=== PATIENT | female | born 1990 | race Caucasian/White ===

== ENCOUNTER 2016-07-21 08:01 | Emergency (ER) | payer OTHER ==
[~2016-07-21] VITALS: Ht 175.3 cm; Wt 100.0 kg
[~2016-07-21 08:01] MED LIST: IBUP-232 PO; ZOFR4TAB3 SL
[2016-07-21 08:10] VITALS: BP 121/78; PULSE 89; RESP 16; TEMP 97.6; O2SAT 94
[2016-07-21] MEDS ORDERED: SODIUM CHLOR 0.9% 1000 ML INJ 1,000 ML IV SCH (08:21)
--- NOTE | 2016-07-21 08:25 | PD ---
HPI Chief Complaint: Complaint Time Seen by Provider: 08:13 Travel History International Travel<30 days: No Contact w/Intl Traveler<30days: No Traveled to known affect area: No History of Present Illness HPI This is a 25-year-old female who presents to the emergency department with right lower quadrant abdominal pain and suprapubic pain has been present for 2- 3 days associated with nausea and multiple episodes of vomiting. Patient reports that this morning she woke up at 4 AM and could only curl up on the bathroom floor to get some relief. She says she's had urinary frequency and urgency as well as some hesitancy but she denies any dysuria. She has had some pain in her right lower back. Her symptoms have been constant. She denies any fevers or chills. She says she's had a cholecystectomy in the past but no other abdominal surgeries. She does get urinary tract infections from time to time but she says this feels worse. PFSH Past Medical History Anxiety: Yes Diminished Hearing: No Gastrointestinal Disorders: Yes Genitourinary: Yes (CHRONIC UTI~5 TIMES A YEAR) Kidney Stones: Yes Immunizations Current: Yes ?: Not LMP: IUD : 3 Para: 1 Miscarriage: 1 : 0 Past Surgical History Appendectomy: Yes Section: Yes Cholecystectomy: Yes Ear Surgery: Yes (TUBES PLACED) Gynecologic Surgery: Yes (IUD PLACEMENT 09/26/10) Tympanostomy Tube: Yes Other Surgery: Yes Social History Alcohol Use: Yes (OCC) Tobacco Use: No Substance Use: No Allergies-Medications (Allergen,Severity, Reaction): Coded Allergies: Codeine (Verified Allergy, Severe, NAUSEA, 07/21/16) Morphine (Verified Allergy, Severe, HIVE, 07/21/16) Reported Meds & Prescriptions Reported Meds & Active Scripts Active No Active Prescriptions or Reported Medications Review of Systems Except as stated in HPI: all other systems reviewed are Neg Physical Exam Narrative GENERAL:Well appearing, no acute distress SKIN: Warm and dry. HEAD: Atraumatic. Normocephalic. EYES: Pupils equal and round. No injection or drainage. ENT: Moist mucous membranes NECK: Trachea midline. CARDIOVASCULAR: Regular rate and rhythm. No murmur appreciated. RESPIRATORY: Clear to auscultation. Breath sounds equal bilaterally. GASTROINTESTINAL: Abdomen soft, tender to palpation in the right lower quadrant and suprapubic region with no rebound or guarding. MUSCULOSKELETAL: No obvious deformities. NEUROLOGICAL: Awake and alert. No obvious cranial nerve deficits. Moving all extremities. PSYCHIATRIC: Appropriate mood and affect; insight and judgment normal. Data Data Last Documented VS Vital Signs Date Time Temp Pulse Resp B/P Pulse Ox O2 Delivery O2 Flow Rate FiO2 07/21/16 08:40 83 16 115/48 96 07/21/16 08:10 97.6 Orders Complete Blood Count With Diff (07/21/16 08:21) Comprehensive Metabolic Panel (07/21/16 08:21) Urinalysis - C+S If Indicated (07/21/16 08:21) Iv Access Insert/Monitor (07/21/16 08:21) Ecg Monitoring (07/21/16 08:21) Oximetry (07/21/16 08:21) Ondansetron Inj (Zofran Inj) (07/21/16 08:30) Sodium Chlor 0.9% 1000 Ml Inj (Ns 1000 M (07/21/16 08:21) Sodium Chloride 0.9% Flush (Ns Flush) (07/21/16 08:30) Hydromorphone Pf Inj (Dilaudid Pf Inj) (07/21/16 08:30) Ed Urine Pregnancytest Poc (07/21/16 08:25) Urine Culture (07/21/16 08:20) Ceftriaxone Inj (Rocephin Inj) (07/21/16 09:00) Labs Laboratory Tests Test 07/21/16 07/21/16 07/21/16 08:20 08:25 09:14 Urine Collection Type CLEAN CATCH Urine Color YELLOW Urine Turbidity MARKED Urine pH 8.5 Urine Specific Angle Inlet 1.020 Urine Protein 100 mg/dL Urine Glucose (UA) NEG mg/dL Urine Ketones 15 mg/dL Urine Occult Blood SMALL Urine Nitrite POS Urine Bilirubin NEG Urine Leukocyte Esterase LARGE Urine RBC 20-24 /hpf Urine WBC INNUM /hpf Urine WBC Clumps MANY Urine Squamous Epithelial > 8 /hpf Cells Urine Bacteria MANY /hpf Microscopic Urinalysis Comment CULTURE INDICATED Urine Collection Time 08:20 White Blood Count 5.9 TH/MM3 Red Blood Count 4.74 MIL/MM3 Hemoglobin 15.0 GM/DL Hematocrit 45.7 % Mean Corpuscular Volume 96.3 FL Mean Corpuscular Hemoglobin 31.6 PG Mean Corpuscular Hemoglobin 32.8 % Concent Red Cell Distribution Width 14.0 % Platelet Count 408 TH/MM3 Mean Platelet Volume 8.4 FL Neutrophils (%) (Auto) 68.3 % Lymphocytes (%) (Auto) 20.3 % Monocytes (%) (Auto) 7.3 % Eosinophils (%) (Auto) 2.5 % Basophils (%) (Auto) 1.6 % Neutrophils # (Auto) 4.1 TH/MM3 Lymphocytes # (Auto) 1.2 TH/MM3 Monocytes # (Auto) 0.4 TH/MM3 Eosinophils # (Auto) 0.1 TH/MM3 Basophils # (Auto) 0.1 TH/MM3 CBC Comment DIFF FINAL Differential Comment Sodium Level 142 MEQ/L Potassium Level 3.8 MEQ/L Chloride Level 106 MEQ/L Carbon Dioxide Level 27.8 MEQ/L Anion Gap 8 MEQ/L Blood Urea Nitrogen 12 MG/DL Creatinine 0.82 MG/DL Estimat Glomerular Filtration 84 ML/MIN Rate Random Glucose 100 MG/DL Calcium Level 8.2 MG/DL Aspartate Amino Transf 29 U/L (AST/SGOT) Alanine Aminotransferase 39 U/L (ALT/SGPT) Alkaline Phosphatase 65 U/L Total Protein 6.8 GM/DL Albumin 3.5 GM/DL MDM Medical Decision Making Medical Screen Exam Complete: Yes Emergency Medical Condition: Yes Interpretation(s) afebrile, no tachycardia, normotensive No leukocytosis Electrolytes within normal limits Urinalysis: Infection Differential Diagnosis Urinary tract infection, pyelonephritis, appendicitis, ovarian cyst rupture, ectopic Narrative Course This is a 25-year-old female who presents to the emergency department with lower abdominal pain associated with frequency, urgency and hesitancy. She was placed in a monitor and an IV was established. Labs are obtained which were reassuring. Urinalysis is consistent with an infection. I considered appendicitis. The patient has had [address] scans in our system and she is only 25 years old. I think her symptoms are consistent with pyelonephritis and I think the risk of radiation outweighs the benefits in this patient. Patient will be discharged on antibiotics and she was given a dose of IV antibiotics here in the emergency department. Diagnosis Primary Impression: Pyelonephritis Patient Instructions: General Instructions Additional Instructions: If you develop fever, persistent vomiting, back pain, or inability to eat return to the emergency department as your urine infection may have progressed to a kidney infection. Complete your antibiotics as prescribed. Stay well hydrated with Gatorade or water. Followup with your primary care physician in 2-3 days if your symptoms have not resolved. Med/Other Pt SpecificInfo: Prescription(s) given Scripts Tramadol 50 Mg Tab50 Mg PO Q6H PRN (PAIN) #10 TAB Ref 0 Prov:Eugenie Cortez MD 07/21/16 Ondansetron Odt (Zofran Odt)4 Mg Tab4 Mg SL Q6HR PRN (Nausea/Vomiting) #15 TAB Ref 0 Prov:Eugenie Cortez MD 07/21/16 Cephalexin (Keflex)500 Mg [id number] Mg PO BID 7 Days Ref 0 Prov:Eugenie Cortez MD 07/21/16 Disposition: 01 DISCHARGE HOME Condition: Stable Eugenie Cortez MD Jul 21, 2016 08:25
[2016-07-21] MEDS ORDERED: SODIUM CHLORIDE 0.9% FLUSH 5 ML FLUSH IVF PRN (08:30)
[2016-07-21] MEDS ORDERED: HYDROmorphone HCL PF 1 MG/ML VIAL IVS ONE (08:30)
[2016-07-21] MEDS ORDERED: ONDANSETRON HCL 4 MG/2 ML VIAL IVP ONE (08:30)
[2016-07-21 08:38] LABS: BLOOD, URINE SMALL (NEG); GLUCOSE,URINE NEG (NEG); KETONE, URINE 15 mg/dL (NEG); PH, URINE 8.5 (5.0-8.5)
[2016-07-21 08:40] VITALS: BP 115/48; PULSE 80; PULSE 83; RESP 16; O2SAT 96
[2016-07-21 08:40] LABS: NITRITE,URINE POS (NEG)
[2016-07-21 08:43] LABS: AUTOMATED NEUTROPHIL # 4.1 TH/MM3 (1.8-7.7); BASOPHIL # 0.1 TH/MM3 (0-0.2); BASOPHIL % 1.6 % (0.0-2.0); EOSINOPHIL # 0.1 TH/MM3 (0-0.4); EOSINOPHIL % 2.5 % (0.0-4.0); HEMATOCRIT 45.7 % (35.0-46.0); HEMO FLAGS DIFF FINAL; LYMPH % 20.3 % (9.0-44.0); LYMPHOCYTE # 1.2 TH/MM3 (1.0-4.8); MEAN CELL VOLUME 96.3 FL (80.0-100.0); MEAN CORPUSCULAR HEMOGLOBIN 31.6 PG (27.0-34.0); MEAN CORPUSCULAR HGB CONC 32.8 % (32.0-36.0); MONO % 7.3 % (0.0-8.0); NEUT % 68.3 % (16.0-70.0); PLATELET COUNT 408 TH/MM3 (150-450); RED BLOOD COUNT 4.74 MIL/MM3 (4.00-5.30); WHITE BLOOD COUNT 5.9 TH/MM3 (4.0-11.0)
[2016-07-21 08:48] LABS: METHOD OF COLLECTION CLEAN CATCH; URINE COLOR YELLOW (YELLW/STRAW); WBC, URINE INNUM /hpf (0-5)
[2016-07-21 08:49] LABS: BACTERIA, URINE MANY /hpf; COMMENT (UR) CULTURE INDICATED; CULTURE IF INDICATED CULTURE INDICATED; SQUAMOUS EPITHELIAL CELL URINE > 8 /hpf (0-5)
[2016-07-21] MEDS ORDERED: cefTRIAXone INJ 1,000 MG in SODIUM CHLORIDE 0.9% INJ 100 ML IV ONE (09:00)
[2016-07-21 10:00] LABS: CHLORIDE 106 MEQ/L (98-107); POTASSIUM 3.8 MEQ/L (3.5-5.1); SODIUM (NA) 142 MEQ/L (136-145)
[2016-07-21 10:07] LABS: ANION GAP 8 MEQ/L (5-15); BICARBONATE 27.8 MEQ/L (21.0-32.0); BLOOD UREA NITROGEN 12 MG/DL (7-18)
[2016-07-21 10:10] LABS: ALT (GPT) 39 U/L (10-53); AST (GOT) 29 U/L (15-37); GLOMERULAR FILTRATION RATE 84 ML/MIN (>89)
[2016-07-21 10:13] LABS: ALKALINE PHOSPHATASE 65 U/L (45-117)
[2016-07-21] MEDS ORDERED: TRAM50TA PO (10:22)
[2016-07-21] MEDS ORDERED: CEPH-460 PO (10:22)
[2016-07-21] MEDS ORDERED: ZOFR4TAB3 SL (10:22)
[2016-07-21 10:29] VITALS: BP 102/65; TEMP 98.3
[2016-07-22] MEDS ORDERED: MOTR200T4 PO (18:14)
[2016-07-22] MEDS ORDERED: PROM1SUP7 RECTAL (18:14)
== END 2016-07-21 10:43 | disposition home or self-care (01) ==
LOC: PHED 08:01
DX: N12 Tubulo-interstitial nephritis, not specified as acute or chronic (principal); B96.20 Unspecified Escherichia coli [E. coli] as the cause of diseases classified elsewhere; Z87.442 Personal history of urinary calculi
CPT/HCPCS: 80053; 81001; 84703; 85025; 87077; 87086; 87186; 96361; 96365; 96375; 99284; J0696; J1170; J2405; J7030

== ENCOUNTER 2016-07-22 16:07 | Emergency (ER) | payer OTHER ==
[~2016-07-22] VITALS: Ht 175.3 cm; Wt 102.0 kg
[~2016-07-22 16:07] MED LIST changes: +CEPH-460 PO; +TRAM50TA PO
[2016-07-22 16:14] VITALS: BP 130/89; PULSE 112; RESP 16; TEMP 98.8; O2SAT 96
[2016-07-22] MEDS ORDERED: SODIUM CHLOR 0.9% 1000 ML INJ 1,000 ML IV SCH (16:22)
[2016-07-22] MEDS ORDERED: SODIUM CHLORIDE 0.9% FLUSH 5 ML FLUSH IVF PRN (16:30)
[2016-07-22] MEDS ORDERED: ONDANSETRON HCL 4 MG/2 ML VIAL IVP ONE (16:30)
[2016-07-22] MEDS ORDERED: HYDROmorphone HCL PF 1 MG/ML VIAL IV PUSH ONE (16:30)
--- NOTE | 2016-07-22 16:30 | PD ---
HPI Chief Complaint: Complaint Time Seen by Provider: 16:22 Travel History International Travel<30 days: No Contact w/Intl Traveler<30days: No Traveled to known affect area: No History of Present Illness HPI 25-year-old female with history of pyelonephritis diagnosed yesterday, released with anti-medics and antibiotics, presents back to the ER today because she states she's been nauseous, vomiting, continuing to have right flank pains, was unable to keep anything down today. She denies any other new issues. Modifying Factors: None Associated Signs & Symptoms: Nausea, vomiting, right flank pain Risk Factors: Pyelonephritis PFSH Past Medical History Anxiety: Yes Diminished Hearing: No Gastrointestinal Disorders: Yes Genitourinary: Yes (CHRONIC UTI~5 TIMES A YEAR) Kidney Stones: Yes Immunizations Current: Yes Tetanus Vaccination: Unknown Influenza Vaccination: No ?: Not LMP: 6 DAYS : 3 Para: 1 Miscarriage: 1 : 0 Past Surgical History Appendectomy: Yes Section: Yes Cholecystectomy: Yes Ear Surgery: Yes (TUBES PLACED) Gynecologic Surgery: Yes (IUD PLACEMENT 09/26/10) Tympanostomy Tube: Yes Other Surgery: Yes Social History Alcohol Use: Yes (OCC) Tobacco Use: Yes (OCC) Substance Use: No Allergies-Medications (Allergen,Severity, Reaction): Coded Allergies: Codeine (Verified Allergy, Severe, NAUSEA, 07/22/16) Morphine (Verified Allergy, Severe, HIVE, 07/22/16) Reported Meds & Prescriptions Reported Meds & Active Scripts Active Tramadol (Tramadol HCl) 50 Mg Tab 50 Mg PO Q6H PRN Zofran Odt (Ondansetron Odt) 4 Mg Tab 4 Mg SL Q6HR PRN Keflex (Cephalexin) 500 Mg Cap 500 Mg PO BID 7 Days Review of Systems Except as stated in HPI: all other systems reviewed are Neg Physical Exam Narrative GENERAL: Well-nourished, well-developed young white female patient in moderate distress, tearful. SKIN: Warm and dry. HEAD: Normocephalic. EYES: No scleral icterus. No injection or drainage. NECK: Supple, trachea midline. CARDIOVASCULAR: Regular rate and rhythm without murmurs, gallops, or rubs. RESPIRATORY: Breath sounds equal bilaterally. No accessory muscle use. GASTROINTESTINAL: Abdomen soft, mild right pelvic, nondistended. MUSCULOSKELETAL: No cyanosis, or edema. BACK: Nontender without obvious deformity. Right CVA tenderness. Data Data Last Documented VS Vital Signs Date Time Temp Pulse Resp B/P Pulse Ox O2 Delivery O2 Flow Rate FiO2 07/22/16 16:14 98.8 112 16 130/89 96 Orders Basic Metabolic Panel (Bmp) (07/22/16 16:22) Complete Blood Count With Diff (07/22/16 16:22) Iv Access Insert/Monitor (07/22/16 16:22) Ecg Monitoring (07/22/16 16:22) Oximetry (07/22/16 16:22) Ondansetron Inj (Zofran Inj) (07/22/16 16:30) Sodium Chlor 0.9% 1000 Ml Inj (Ns 1000 M (07/22/16 16:22) Sodium Chloride 0.9% Flush (Ns Flush) (07/22/16 16:30) Hydromorphone Pf Inj (Dilaudid Pf Inj) (07/22/16 16:30) Labs Laboratory Tests Test 07/22/16 16:35 White Blood Count 6.5 TH/MM3 Red Blood Count 4.73 MIL/MM3 Hemoglobin 14.8 GM/DL Hematocrit 45.9 % Mean Corpuscular Volume 97.0 FL Mean Corpuscular Hemoglobin 31.2 PG Mean Corpuscular Hemoglobin 32.2 % Concent Red Cell Distribution Width 13.9 % Platelet Count 363 TH/MM3 Mean Platelet Volume 8.3 FL Neutrophils (%) (Auto) 58.7 % Lymphocytes (%) (Auto) 26.6 % Monocytes (%) (Auto) 8.7 % Eosinophils (%) (Auto) 5.0 % Basophils (%) (Auto) 1.0 % Neutrophils # (Auto) 3.8 TH/MM3 Lymphocytes # (Auto) 1.7 TH/MM3 Monocytes # (Auto) 0.6 TH/MM3 Eosinophils # (Auto) 0.3 TH/MM3 Basophils # (Auto) 0.1 TH/MM3 CBC Comment DIFF FINAL Differential Comment Sodium Level 142 MEQ/L Potassium Level 3.9 MEQ/L Chloride Level 106 MEQ/L Carbon Dioxide Level 28.5 MEQ/L Anion Gap 8 MEQ/L Blood Urea Nitrogen 9 MG/DL Creatinine 1.10 MG/DL Estimat Glomerular Filtration 60 ML/MIN Rate Random Glucose 96 MG/DL Calcium Level 8.9 MG/DL MDM Medical Decision Making Medical Screen Exam Complete: Yes Emergency Medical Condition: Yes Medical Record Reviewed: Yes Interpretation(s) Laboratory Tests Test 07/22/16 16:35 Monocytes (%) (Auto) 8.7 % (0.0-8.0) Eosinophils (%) (Auto) 5.0 % (0.0-4.0) Creatinine 1.10 MG/DL (0.50-1.00) Estimat Glomerular Filtration 60 ML/MIN (>89) Rate Differential Diagnosis Right flank pains, nausea and vomitingpyelonephritisrule out dehydration versus metabolic issues versus worsening sepsis Narrative Course Patient was given IV fluids, Zofran, and Dilaudid in the ER. Symptoms and lab work done yesterday are indicative of UTI and pyelonephritis. However, it appears that the patient is not tolerating by mouth medications due to vomiting. Lab work returns showing no significant dehydration or signs of sepsis. Vital signs are stable in the ER. On reevaluation at 6:12 PM, she is feeling improved, has had no further vomiting episodes in the ER. At this point , I have talked to the patient regarding findings and have discussed observation admission versus change in nausea medication and further outpatient therapy. Patient states that she feels better enough that she is willing to try additional anti-medic as an outpatient and further treatment with by mouth pain medication and antibiotic. She should return for any worsening in vomiting , pain, or new symptoms. The plan was discussed with the patient and she states understanding. Diagnosis Primary Impression: Nausea and vomiting Med/Other Pt SpecificInfo: Prescription(s) given Scripts Ibuprofen (Motrin Ib)200 Mg [id number] Mg PO Q6H PRN (PAIN SCALE 1 TO 10) #15 TAB Ref 0 Prov:Alma Andres MD 07/22/16 Promethazine Supp (Phenergan Supp)25 Mg Supp25 Mg RECTAL Q6H PRN (NAUSEA OR VOMITING) #7 SUPP Ref 0 Prov:Alma Andres MD 07/22/16 Disposition: 01 DISCHARGE HOME Condition: Stable Alma Andres MD Jul 22, 2016 16:30
[2016-07-22 16:55] LABS: AUTOMATED NEUTROPHIL # 3.8 TH/MM3 (1.8-7.7); BASOPHIL # 0.1 TH/MM3 (0-0.2); EOSINOPHIL # 0.3 TH/MM3 (0-0.4); HEMATOCRIT 45.9 % (35.0-46.0); HEMO FLAGS DIFF FINAL; LYMPH % 26.6 % (9.0-44.0); LYMPHOCYTE # 1.7 TH/MM3 (1.0-4.8); MEAN CORPUSCULAR HEMOGLOBIN 31.2 PG (27.0-34.0); MEAN CORPUSCULAR HGB CONC 32.2 % (32.0-36.0); MONO % 8.7 % (0.0-8.0); NEUT % 58.7 % (16.0-70.0); PLATELET COUNT 363 TH/MM3 (150-450); RED BLOOD COUNT 4.73 MIL/MM3 (4.00-5.30); RED CELL DISTRIBUTION WIDTH 13.9 % (11.6-17.2); WHITE BLOOD COUNT 6.5 TH/MM3 (4.0-11.0)
[2016-07-22 17:20] VITALS: BP 141/56; PULSE 66; RESP 20
[2016-07-22 18:00] LABS: BICARBONATE 28.5 MEQ/L (21.0-32.0)
[2016-07-22 18:03] LABS: POTASSIUM 3.9 MEQ/L (3.5-5.1)
[2016-07-22] MEDS ORDERED: MOTR200T4 PO (18:14)
[2016-07-22] MEDS ORDERED: PROM1SUP7 RECTAL (18:14)
[2016-07-22 18:16] VITALS: BP 130/62; PULSE 62; RESP 18; O2SAT 97
== END 2016-07-22 18:51 | disposition home or self-care (01) ==
LOC: PHED 16:07
DX: R11.2 Nausea with vomiting, unspecified (principal); R10.9 Unspecified abdominal pain
CPT/HCPCS: 80048; 85025; 96361; 96374; 96375; 99284; J1170; J2405; J7030

== ENCOUNTER 2017-02-03 13:05 | Emergency (ER) | payer OTHER ==
[~2017-02-03 13:05] MED LIST changes: -IBUP-232 PO; +MOTR200T4 PO; +PROM1SUP7 RECTAL
[2017-02-03 13:10] VITALS: BP 127/53; PULSE 82; RESP 20; TEMP 98.6; O2SAT 97
[2017-02-03] MEDS ORDERED: SODIUM CHLOR 0.9% 1000 ML INJ 1,000 ML IV SCH (13:26)
[2017-02-03] MEDS ORDERED: SODIUM CHLORIDE 0.9% FLUSH 10 ML FLUSH IV FLUSH PRN (13:30)
[2017-02-03] MEDS ORDERED: ONDANSETRON HCL 4 MG/2 ML VIAL IVP ONE (13:30)
[2017-02-03] MEDS ORDERED: HYDROmorphone HCL PF 1 MG/ML VIAL IVS ONE (13:30)
[2017-02-03 13:47] LABS: GLUCOSE,URINE NEG (NEG); KETONE, URINE 15 mg/dL (NEG); NITRITE,URINE NEG (NEG)
[2017-02-03 13:50] LABS: BLOOD, URINE MOD (NEG)
[2017-02-03 13:58] LABS: METHOD OF COLLECTION CLEAN CATCH
[2017-02-03 13:59] LABS: URINE COLOR YELLOW (YELLW/STRAW)
[2017-02-03 14:04] LABS: COMMENT (UR) CULT NOT INDICATED; COMMENT2 (UR) MUCOUS PRESENT; CULTURE IF INDICATED CULT NOT INDICATED; SQUAMOUS EPITHELIAL CELL URINE > 8 /hpf (0-5)
--- NOTE | 2017-02-03 14:24 | RADRPT ---
EXAM DATE/TIME: 02/03/2017 14:00 [facility] COMPARISON: CT ABDOMEN & PELVIS W/O CONTRAST, April 24, 2016, 10:10. INDICATIONS : Right lower quadrant pain. ORAL CONTRAST: No oral contrast ingested. RADIATION DOSE: 16.01 CTDIvol (mGy) MEDICAL HISTORY : None SURGICAL HISTORY : Appendectomy. Cholecystectomy. section.IUD ENCOUNTER: Initial ACUITY: 2 days PAIN SCALE: 7/10 LOCATION: Right lower quadrant TECHNIQUE: Volumetric scanning of the abdomen and pelvis was performed. Using automated exposure control and ad justment of the mA and/or kV according to patient size, radiation dose was kept as low as reasonably achievable to obtain optimal diagnostic quality images. DICOM format image data is available electro nically for review and comparison. The lack of IV contrast limits the diagnosis for certain organ pa thology. FINDINGS: LOWER LUNGS: The visualized lower lungs are clear. LIVER: Homogeneous density without lesion. There is no dilation of the biliary tree. No gallbladder, surgi nereyda removed.. SPLEEN: Normal size without lesion. PANCREAS: Within normal limits. KIDNEYS: Normal in size and shape. There is no mass, stone, or hydronephrosis. ADRENAL GLANDS: Within normal limits. VASCULAR: There is no aortic aneurysm. BOWEL/MESENTERY: The stomach, small bowel, and colon demonstrate no acute abnormality. There is no free intraperitone al air or fluid. No inflammatory changes. There is stool throughout the colon.ABDOMINAL WALL: Within normal limits. RETROPERITONEUM: There is no lymphadenopathy. BLADDER: No wall thickening or mass. REPRODUCTIVE: There is an IUD in the uterus. No change compared to the prior study. INGUINAL: There is no lymphadenopathy or hernia. MUSCULOSKELETAL: Within normal limits for patient age. No significant change compared to the prior exam. CONCLUSION: 1. Stable and unremarkable noncontrast CT scan of the abdomen and pelvis. 2. IUD in uterus. No change compared to the prior study. Wilder Dasilva MD on February 03, 2017 at 14:19 Board Certified Radiologist. This report was verified electronically.
[2017-02-03 15:05] VITALS: BP 118/48; PULSE 60; RESP 18; O2SAT 100
[2017-02-03 15:06] VITALS: RESP 18; O2SAT 100
[2017-02-03 15:12] LABS: CHLORIDE 107 MEQ/L (98-107); POTASSIUM 3.9 MEQ/L (3.5-5.1); SODIUM (NA) 139 MEQ/L (136-145)
[2017-02-03 15:15] LABS: ANION GAP 8 MEQ/L (5-15); BICARBONATE 24.4 MEQ/L (21.0-32.0)
[2017-02-03 15:16] LABS: BLOOD UREA NITROGEN 11 MG/DL (7-18)
[2017-02-03 15:18] LABS: ALT (GPT) 42 U/L (10-53); AST (GOT) 28 U/L (15-37); GLOMERULAR FILTRATION RATE 98 ML/MIN (>89)
[2017-02-03 15:21] LABS: ALKALINE PHOSPHATASE 56 U/L (45-117)
[2017-02-03 15:25] LABS: AUTOMATED NEUTROPHIL # 3.1 TH/MM3 (1.8-7.7); BASOPHIL # 0.1 TH/MM3 (0-0.2); BASOPHIL % 1.6 % (0.0-2.0); EOSINOPHIL # 0.1 TH/MM3 (0-0.4); EOSINOPHIL % 2.1 % (0.0-4.0); HEMATOCRIT 39.9 % (35.0-46.0); HEMO FLAGS DIFF FINAL; LYMPH % 33.1 % (9.0-44.0); LYMPHOCYTE # 1.8 TH/MM3 (1.0-4.8); MEAN CORPUSCULAR HEMOGLOBIN 30.4 PG (27.0-34.0); MEAN CORPUSCULAR HGB CONC 32.6 % (32.0-36.0); MONO % 6.8 % (0.0-8.0); NEUT % 56.4 % (16.0-70.0); PLATELET COUNT 247 TH/MM3 (150-450); RED BLOOD COUNT 4.29 MIL/MM3 (4.00-5.30); RED CELL DISTRIBUTION WIDTH 13.4 % (11.6-17.2); WHITE BLOOD COUNT 5.5 TH/MM3 (4.0-11.0)
[2017-02-03] MEDS ORDERED: ULTR50TA5 PO (15:27)
[2017-02-03] MEDS ORDERED: ZOFR4TAB3 SL (15:27)
--- NOTE | 2017-02-03 15:27 | PD ---
HPI Chief Complaint: Abdominal Pain Time Seen by Provider: 13:20 Travel History International Travel<30 days: No Contact w/Intl Traveler<30days: No Traveled to known affect area: No History of Present Illness HPI C/O 2 DAYS OF RLQ TTP, NONRADIATING, NO ASSOC N/V/D/FEVER/CP/ORTIZ...NO ALLEVIATING /AGGRAVATING FACTORS PFSH Past Medical History Anxiety: Yes Diminished Hearing: No Gastrointestinal Disorders: Yes Genitourinary: Yes (CHRONIC UTI~5 TIMES A YEAR) Kidney Stones: Yes Immunizations Current: Yes Influenza Vaccination: No ?: Not : 3 Para: 1 Miscarriage: 1 : 0 Past Surgical History Appendectomy: Yes Section: Yes Cholecystectomy: Yes Ear Surgery: Yes (TUBES PLACED) Gynecologic Surgery: Yes (IUD PLACEMENT 09/26/10) Tympanostomy Tube: Yes Other Surgery: Yes Social History Alcohol Use: Yes (OCC) Tobacco Use: Yes (1/2 PPD) Substance Use: No Allergies-Medications (Allergen,Severity, Reaction): Coded Allergies: Codeine (Verified Allergy, Severe, NAUSEA, 02/03/17) Morphine (Verified Allergy, Severe, HIVE, 02/03/17) Reported Meds & Prescriptions Reported Meds & Active Scripts Active Zofran Odt (Ondansetron Odt) 4 Mg Tab 4 Mg SL Q6HR PRN Ultram (Tramadol HCl) 50 Mg Tab 50 Mg PO Q4H PRN Review of Systems Except as stated in HPI: all other systems reviewed are Neg Gastrointestinal: Positive: Nausea, Abdominal Pain Physical Exam Narrative GENERAL: SKIN: Warm and dry. HEAD: Atraumatic. Normocephalic. EYES: Pupils equal and round. No scleral icterus. No injection or drainage. ENT: No nasal bleeding or discharge. Mucous membranes pink and moist. NECK: Trachea midline. No JVD. CARDIOVASCULAR: Regular rate and rhythm. RESPIRATORY: No accessory muscle use. Clear to auscultation. Breath sounds equal bilaterally. GASTROINTESTINAL: Abdomen soft, MILD TTP AT RT ADNEXAL TO RLQ REGION, nondistended. NO REBOUND/GUARDING/RIGIDITY MUSCULOSKELETAL: Extremities without clubbing, cyanosis, or edema. No obvious deformities. NEUROLOGICAL: Awake and alert. No obvious cranial nerve deficits. Motor grossly within normal limits. Five out of 5 muscle strength in the arms and legs. Normal speech. PSYCHIATRIC: Appropriate mood and affect; insight and judgment normal. Data Data Last Documented VS Orders Complete Blood Count With Diff (02/03/17 13:26) Comprehensive Metabolic Panel (02/03/17:) Lipase (02/03/17:) Urinalysis - C+S If Indicated (02/03/17:) Ct Abd/Pel W/O Iv Contrast (02/03/17:26) Iv Access Insert/Monitor (02/03/17:) Ecg Monitoring (02/03/17:) Oximetry (02/03/17:) NPO (02/03/17:) Ondansetron Inj (Zofran Inj) (02/03/17 13:30) Sodium Chlor 0.9% 1000 Ml Inj (Ns 1000 M (02/03/17:) Sodium Chloride 0.9% Flush (Ns Flush) (02/03/17 13:30) Hydromorphone Pf Inj (Dilaudid Pf Inj) (02/03/17 13:30) Ed Urine Pregnancytest Poc (02/03/17:) Labs MDM Medical Decision Making Medical Screen Exam Complete: Yes Emergency Medical Condition: Yes Medical Record Reviewed: Yes Differential Diagnosis APPY V OVARIAN CYST V UTI Narrative Course patient labs did not reveal leukocytosis, ct did not show any e/o appy, pain controlled and advised patient of findings. Diagnosis Primary Impression: ACUTE OVARIAN CYST (RIGHT) Scripts Ondansetron Odt (Zofran Odt)4 Mg Tab4 Mg SL Q6HR PRN (Nausea/Vomiting) #12 TAB Prov:Matthew Krueger MD 02/03/17 Tramadol (Ultram)50 Mg Tab50 Mg PO Q4H PRN (PAIN) #28 TAB Prov:Matthew Krueger MD 02/03/17 Disposition: 01 DISCHARGE HOME Condition: Stable Matthew Krueger MD Feb 03, 2017 15:27 Urine Protein NEG mg/dL Urine Glucose (UA) NEG mg/dL Urine Ketones 15 mg/dL Urine Occult Blood MOD Urine Nitrite NEG Urine Bilirubin NEG Urine Leukocyte Esterase TRACE Urine RBC 4-9 /hpf Urine WBC 3-5 /hpf Urine Squamous Epithelial > 8 /hpf Cells Urine Amorphous Sediment MOD Microscopic Urinalysis Comment CULT NOT INDICATED Urine Collection Time 1314 Sodium Level 139 MEQ/L Potassium Level 3.9 MEQ/L Chloride Level 107 MEQ/L Carbon Dioxide Level 24.4 MEQ/L Anion Gap 8 MEQ/L Blood Urea Nitrogen 11 MG/DL Creatinine 0.71 MG/DL Estimat Glomerular Filtration 98 ML/MIN Rate Random Glucose 87 MG/DL Calcium Level 8.5 MG/DL Total Bilirubin 1.0 MG/DL Aspartate Amino Transf 28 U/L (AST/SGOT) Alanine Aminotransferase 42 U/L (ALT/SGPT) Alkaline Phosphatase 56 U/L Total Protein 6.7 GM/DL Albumin 3.4 GM/DL Lipase 102 U/L [facility] Medical Decision Making Medical Screen Exam Complete: Yes Emergency Medical Condition: Yes Medical Record Reviewed: Yes Differential Diagnosis APPY V OVARIAN CYST V UTI Diagnosis Primary Impression: ACUTE OVARIAN CYST (RIGHT) Scripts Ondansetron Odt (Zofran Odt)4 Mg Tab4 Mg SL Q6HR PRN (Nausea/Vomiting) #12 TAB Prov:Matthew Krueger MD 02/03/17 Tramadol (Ultram)50 Mg Tab50 Mg PO Q4H PRN (PAIN) #28 TAB Prov:Matthew Krueger MD 02/03/17 Disposition: 01 DISCHARGE HOME Condition: Stable Matthew Krueger MD Feb 03, 2017 15:27
[2017-02-03 16:26] VITALS: BP 120/55; PULSE 62; RESP 16; O2SAT 100
== END 2017-02-03 16:33 | disposition home or self-care (01) ==
LOC: PHED 13:05
DX: N83.201 Unspecified ovarian cyst, right side (principal); F17.210 Nicotine dependence, cigarettes, uncomplicated; Z87.442 Personal history of urinary calculi
CPT/HCPCS: 74176; 80053; 81001; 83690; 84703; 85025; 96361; 96374; 96375; 99285; J1170; J2405; J7030

== ENCOUNTER 2017-06-11 16:31 | Emergency (ER) | payer SELFPAY ==
[~2017-06-11] VITALS: Ht 177.8 cm; Wt 90.2 kg
[~2017-06-11 16:31] MED LIST changes: -CEPH-460 PO; -MOTR200T4 PO; -PROM1SUP7 RECTAL; +TRAM50 PO; -TRAM50TA PO
[2017-06-11 16:32] VITALS: BP 148/65; PULSE 92; RESP 18; TEMP 98.2; O2SAT 99
[2017-06-11] MEDS ORDERED: predniSONE 20 MG TAB PO ONE (17:00)
[2017-06-11] MEDS ORDERED: FAMOTIDINE 20 MG TAB PO ONE (17:00)
--- NOTE | 2017-06-11 17:23 | PD ---
HPI Chief Complaint: Bite or Sting Time Seen by Provider: 16:43 Travel History International Travel<30 days: No Contact w/Intl Traveler<30days: No Traveled to known affect area: No History of Present Illness HPI Patient comes in with concerns of possible bug bites on her right hand that occurred 2 days ago. Patient states they are very pruritic in nature. Patient states they have improved since initial onset. Patient states she's been using hydrocortisone cream and Benadryl that seemed to help. Patient states that secondary to people at her work she looked online got concerned and came to the emergency department. Denies any fevers, , or IV drug use. Denies any pain with this. Denies anything making worse. PFSH Past Medical History Autoimmune Disease: No Blood Disorders: No Anxiety: Yes Cardiovascular Problems: No Diminished Hearing: No Gastrointestinal Disorders: Yes Genitourinary: Yes (CHRONIC UTI~5 TIMES A YEAR) Kidney Stones: Yes Musculoskeletal: No Neurologic: No Psychiatric: No Respiratory: No Immunizations Current: Yes ?: Not : 3 Para: 1 Miscarriage: 1 : 0 Past Surgical History Abdominal Surgery: No Appendectomy: Yes Cardiac Surgery: No Section: Yes Cholecystectomy: Yes Ear Surgery: Yes (TUBES PLACED) Endocrine Surgery: No Eye Surgery: No Genitourinary Surgery: No Gynecologic Surgery: Yes (IUD PLACEMENT 09/26/10) Neurologic Surgery: No Oral Surgery: No Thoracic Surgery: No Tympanostomy Tube: Yes Other Surgery: Yes Social History Alcohol Use: Yes (OCC) Tobacco Use: Yes (1/2 PPD) Substance Use: No Allergies-Medications (Allergen,Severity, Reaction): Coded Allergies: codeine (Unverified Allergy, Severe, NAUSEA, 06/11/17) morphine (Unverified Allergy, Severe, HIVE, 06/11/17) Reported Meds & Prescriptions Reported Meds & Active Scripts Active Pepcid (Famotidine) 20 Mg Tab 20 Mg PO BID 10 Days Prednisone (21) 10 mg tab Dose Pack (Prednisone) 10 Mg Pack 10 Mg PO DIRECTED Review of Systems Except as stated in HPI: all other systems reviewed are Neg Physical Exam Narrative GENERAL: Well-developed, overly nourished, in no acute distress, and non-ill appearing. SKIN: Focused skin assessment warm and dry. 4 small what appear to be bug bites on the dorsal aspect of the right hand. They're mildly erythematous, nontender, without crepitus, without induration, and without fluctuation. There is no streaking or drainage. There is no signs of infection at this time. HEAD: Atraumatic. Normocephalic. EYES: Pupils equal and round. EOMI. No scleral icterus. No injection or drainage. ENT: No nasal bleeding or discharge. Mucous membranes pink and moist. NECK: Trachea midline. Supple. No nuclear rigidity. RESPIRATORY: No accessory muscle use. No respiratory distress. MUSCULOSKELETAL: No obvious deformities. No clubbing. No cyanosis. No edema. Full range of motion. NEUROLOGICAL: Awake and alert. No obvious cranial nerve deficits. Motor grossly within normal limits. Normal speech. PSYCHIATRIC: Appropriate mood and affect; insight and judgment normal. Data Data Last Documented VS Vital Signs Date Time Temp Pulse Resp B/P (MAP) Pulse Ox O2 Delivery O2 Flow Rate FiO2 06/11/17 17:28 06/11/17 16:32 98.2 92 18 99 Room Air Orders Orders Ed Discharge Order (06/11/17 16:57) Prednisone (Deltasone) (06/11/17 17:00) Famotidine (Pepcid) (06/11/17 17:00) MDM Medical Decision Making Medical Screen Exam Complete: Yes Emergency Medical Condition: Yes Differential Diagnosis Abscess, cellulitis, folliculitis, inflammatory reaction from bug bite, gangrene Narrative Course The patient appears to have an insect bite with resultant inflammatory reaction to the bite. The area is mildly erythematous but not tender and not warm. It does not appear cellulitic at this time. The patient was discharged home on steroids and Pepcid along with an H1 cosmo was recommended for treatment. Diagnosis and treatment plan was agreed upon. The patient is to return if worsen , spreads or fever develops. Abscess warnings were also discussed. Patient in no obvious distress upon re-evaluation. Patient was asked if they wanted to speak to my attending, which the patient did not wish to do at this time. Any questions/concerns in reference to patient diagnosis/condition discussed and clarified prior to patient's discharge. Reinforced sheer importance of close follow up with patient's primary physician or primary care clinic. Instructed patient to return to ED immediately, if symptoms return/ worsen. Patient showed understanding of above instructions. Further instructions and recommendations were detailed in discharge paperwork. Patient ambulated without difficulty out of ED at discharge. Diagnosis Primary Impression: Bug bite Qualified Codes: W57.XXXA - Bitten or stung by nonvenomous insect and other nonvenomous arthropods, initial encounter Referrals: [facility] Patient Instructions: General Instructions, Insect Bite or Sting (ED) Additional Instructions: Follow-up with your primary care physician in 3-5 days for reevaluation. Take all medication as prescribed. Use [id number] Claritin or Zyrtec or Benadryl as needed for symptomatically relief. Follow instructions on the packaging. Return to the emergency department if symptoms get worse. Med/Other Pt SpecificInfo: Prescription(s) given Scripts Famotidine (Pepcid) 20 Mg Tab 20 MG PO BID for 10 Days, #20 TAB 0 Refills Prov: Evan Addison MD 06/11/17 Prednisone (21) 10 mg tab Dose Pack (Prednisone (21) 10 mg tab Dose Pack) 10 Mg Pack 10 MG PO DIRECTED for Inflammation, #1 DSPK 0 Refills Prov: Evan Addison MD 06/11/17 Disposition: 01 DISCHARGE HOME Condition: Stable Piotr Chávez Jun 11, 2017 17:23
[2017-06-11] MEDS ORDERED: PRED10PA PO (17:24)
[2017-06-11] MEDS ORDERED: FAMO1TAB37 PO (17:24)
== END 2017-06-11 17:39 | disposition home or self-care (01) ==
LOC: PHEFT 16:31
DX: S60.561A Insect bite (nonvenomous) of right hand, initial encounter (principal); F17.200 Nicotine dependence, unspecified, uncomplicated; W57.XXXA Bitten or stung by nonvenomous insect and other nonvenomous arthropods, initial encounter
CPT/HCPCS: 99284; J7512

== ENCOUNTER 2017-09-21 13:57 | Emergency (ER) | payer SELFPAY ==
[~2017-09-21] VITALS: Ht 177.8 cm; Wt 91.0 kg
[~2017-09-21 13:57] MED LIST changes: +FAMO1TAB37 PO; +PRED10PA PO; -TRAM50 PO; -ZOFR4TAB3 SL
[2017-09-21 13:59] VITALS: BP 139/73; PULSE 90; RESP 18; TEMP 98.2; O2SAT 96
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
[2017-09-21] MEDS ORDERED: ACETAMINOPHEN/HYDROcodone 325 MG/5 MG TAB PO ONE (16:00)
[2017-09-21] MEDS ORDERED: TRAM50TA PO (16:12)
[2017-09-21] MEDS ORDERED: DICL75TA PO (16:12)
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
== END 2017-09-21 16:50 | disposition home or self-care (01) ==
LOC: PHEFT 13:57
DX: S06.0X1A Concussion with loss of consciousness of 30 minutes or less, initial encounter (principal); Y04.2XXA Assault by strike against or bumped into by another person, initial encounter; F41.9 Anxiety disorder, unspecified; Z87.442 Personal history of urinary calculi; F17.200 Nicotine dependence, unspecified, uncomplicated
CPT/HCPCS: 70450; 70486; 72125; 99284

== ENCOUNTER 2017-11-04 10:10 | Emergency (ER) | payer MEDICAID ==
[~2017-11-04] VITALS: Ht 180.3 cm; Wt 92.1 kg
[~2017-11-04 10:10] MED LIST changes: +DICL75TA PO; +TRAM50TA PO
[2017-11-04 10:14] VITALS: BP 143/66; PULSE 93; RESP 16; TEMP 97.6; O2SAT 97
[2017-11-04 10:28] LABS: BILIRUBIN, URINE NEG (NEG); BLOOD, URINE LARGE (NEG); GLUCOSE,URINE NEG (NEG); KETONE, URINE NEG (NEG); NITRITE,URINE NEG (NEG); PH, URINE 8.5 (5.0-8.5); URINE COLOR YELLOW (YELLW/STRAW); URINE LEUKOCYTE ESTERASE NEG (NEG)
[2017-11-04 10:36] LABS: WBC, URINE 0-2 /hpf (0-5)
[2017-11-04 10:44] LABS: AMORPHOUS SEDIMENT, URINE FEW; RBC, URINE 15-19 /hpf (0-3); SQUAMOUS EPITHELIAL CELL URINE 0-5 /hpf (0-5)
[2017-11-04 10:46] LABS: AUTOMATED NEUTROPHIL # 5.2 TH/MM3 (1.8-7.7); BASOPHIL # 0.1 TH/MM3 (0-0.2); BASOPHIL % 0.9 % (0.0-2.0); EOSINOPHIL # 0.4 TH/MM3 (0-0.4); EOSINOPHIL % 5.3 % (0.0-4.0); HEMATOCRIT 43.7 % (35.0-46.0); HEMOGLOBIN 14.7 GM/DL (11.6-15.3); LYMPH % 19.3 % (9.0-44.0); LYMPHOCYTE # 1.4 TH/MM3 (1.0-4.8); MEAN CELL VOLUME 94.7 FL (80.0-100.0); MEAN CORPUSCULAR HEMOGLOBIN 31.9 PG (27.0-34.0); MEAN CORPUSCULAR HGB CONC 33.7 % (32.0-36.0); MEAN PLATELET VOLUME 8.6 FL (7.0-11.0); MONO % 4.8 % (0.0-8.0); MONOCYTE # 0.4 TH/MM3 (0-0.9); NEUT % 69.7 % (16.0-70.0); PLATELET COUNT 341 TH/MM3 (150-450); RED BLOOD COUNT 4.61 MIL/MM3 (4.00-5.30); RED CELL DISTRIBUTION WIDTH 13.3 % (11.6-17.2); WHITE BLOOD COUNT 7.5 TH/MM3 (4.0-11.0)
[2017-11-04 11:07] LABS: CHLORIDE 110 MEQ/L (98-107); SODIUM (NA) 140 MEQ/L (136-145)
[2017-11-04 11:11] LABS: ALBUMIN 3.8 GM/DL (3.4-5.0); BICARBONATE 23.5 MEQ/L (21.0-32.0); BLOOD UREA NITROGEN 14 MG/DL (7-18); CALCIUM 8.9 MG/DL (8.5-10.1); GLUCOSE,RANDOM 111 MG/DL (74-106)
[2017-11-04 11:14] LABS: ALT (GPT) 25 U/L (10-53); AST (GOT) 20 U/L (15-37); CREATININE 0.77 MG/DL (0.50-1.00); GLOMERULAR FILTRATION RATE 89 ML/MIN (>89)
[2017-11-04 11:16] LABS: TOTAL BILIRUBIN ADULT 0.7 MG/DL (0.2-1.0); TOTAL PROTEIN 7.5 GM/DL (6.4-8.2)
[2017-11-04 11:17] LABS: ALKALINE PHOSPHATASE 58 U/L (45-117)
[2017-11-04] MEDS ORDERED: ONDANSETRON HCL 4 MG/2 ML VIAL IV PUSH ONE (11:30)
[2017-11-04] MEDS ORDERED: SODIUM CHLOR 0.9% 1000 ML INJ 1,000 ML IV ONE (11:30)
--- NOTE | 2017-11-04 11:53 | PD ---
HPI Chief Complaint: Abdominal Pain Time Seen by Provider: 11:20 Travel History International Travel<30 days: No Contact w/Intl Traveler<30days: No Traveled to known affect area: No History of Present Illness HPI 26-year-old female patient with previous cholecystectomy, presents to the ER today for 3 days history of periumbilical pain with increasing pains to the right flank, nausea, vomiting, currently rating the pain an 8 out of 10. She denies any diarrhea, urinary, fevers, or other symptoms. She does not know of any exacerbating or alleviating factors. She does not know of any sick contacts. Modifying Factors: None Associated Signs & Symptoms: Periumbilical and right-sided abdominal pains with nausea and vomiting Risk Factors: None PFSH Past Medical History Hx Anticoagulant Therapy: No Autoimmune Disease: No Blood Disorders: No Anxiety: Yes Cardiovascular Problems: No Diabetes: No Diminished Hearing: No Gastrointestinal Disorders: Yes Genitourinary: Yes (UTI's) Kidney Stones: Yes Musculoskeletal: No Neurologic: No Psychiatric: No Respiratory: No Immunizations Current: Yes ?: Not LMP: 10/18/17 : 3 Para: 1 Miscarriage: 1 : 0 Past Surgical History Abdominal Surgery: No Cardiac Surgery: No Section: Yes (1) Cholecystectomy: Yes Ear Surgery: Yes (TUBES PLACED) Endocrine Surgery: No Eye Surgery: No Genitourinary Surgery: No Gynecologic Surgery: Yes (C section) Neurologic Surgery: No Oral Surgery: No Thoracic Surgery: No Tympanostomy Tube: Yes Other Surgery: Yes Social History Alcohol Use: Yes (OCC) Tobacco Use: Yes (1/2 PPD) Substance Use: No Allergies-Medications (Allergen,Severity, Reaction): Coded Allergies: codeine (Unverified Allergy, Severe, NAUSEA, 11/04/17) morphine (Unverified Allergy, Severe, HIVE, 11/04/17) Reported Meds & Prescriptions Reported Meds & Active Scripts Active No Active Prescriptions or Reported Medications Review of Systems Except as stated in HPI: all other systems reviewed are Neg Physical Exam Narrative GENERAL: Well-developed young female patient currently in moderate distress. Awake and oriented 3. SKIN: Focused skin assessment warm/dry. HEAD: Atraumatic. Normocephalic. EYES: Pupils equal and round. No scleral icterus. No injection or drainage. ENT: No nasal bleeding or discharge. Mucous membranes pink and moist. NECK: Trachea midline. No JVD. Supple. CARDIOVASCULAR: Regular rate and rhythm. No murmur appreciated. RESPIRATORY: No accessory muscle use. Clear to auscultation. Breath sounds equal bilaterally. GASTROINTESTINAL: Abdomen soft, mild periumbilical tenderness without guarding or rebound, nondistended. Hepatic and splenic margins not palpable. MUSCULOSKELETAL: No obvious deformities. No clubbing. No cyanosis. No edema. NEUROLOGICAL: Awake and alert. No obvious cranial nerve deficits. Motor grossly within normal limits. Normal speech. PSYCHIATRIC: Appropriate mood and affect; insight and judgment normal. Data Data Last Documented VS Vital Signs Date Time Temp Pulse Resp B/P (MAP) Pulse Ox O2 Delivery O2 Flow Rate FiO2 11/04/17 10:14 97.6 93 16 143/66 (91) 97 Orders Orders Urinalysis - C+S If Indicated (11/04/17 10:13) Ed Urine Pregnancytest Poc (11/04/17 10:13) Complete Blood Count With Diff (11/04/17 10:32) Comprehensive Metabolic Panel (11/04/17 10:32) Lipase (11/04/17 10:32) Sodium Chlor 0.9% 1000 Ml Inj (Ns 1000 M (11/04/17 11:30) Ondansetron Inj (Zofran Inj) (11/04/17 11:30) Ct Abd/Pel W/O Iv Contrast (11/04/17 11:20) Ed Discharge Order (11/04/17 12:33) Labs Laboratory Tests Test 11/04/17 10:15 11/04/17 10:30 Urine Collection Type CLEAN CATCH Urine Color YELLOW Urine Turbidity CLEAR Urine pH 8.5 Urine Specific [place] 1.020 Urine Protein NEG mg/dL Urine Glucose (UA) NEG mg/dL Urine Ketones NEG mg/dL Urine Occult Blood LARGE Urine Nitrite NEG Urine Bilirubin NEG Urine Urobilinogen 0.2 MG/DL Urine Leukocyte Esterase NEG Urine RBC 15-19 /hpf Urine WBC 0-2 /hpf Urine Squamous Epithelial Cells 0-5 /hpf Urine Amorphous Sediment FEW Microscopic Urinalysis Comment CULT NOT INDICATED Urine Collection Time 1015 White Blood Count 7.5 TH/MM3 Red Blood Count 4.61 MIL/MM3 Hemoglobin 14.7 GM/DL Hematocrit 43.7 % Mean Corpuscular Volume 94.7 FL Mean Corpuscular Hemoglobin 31.9 PG Mean Corpuscular Hemoglobin Concent 33.7 % Red Cell Distribution Width 13.3 % Platelet Count 341 TH/MM3 Mean Platelet Volume 8.6 FL Neutrophils (%) (Auto) 69.7 % Lymphocytes (%) (Auto) 19.3 % Monocytes (%) (Auto) 4.8 % Eosinophils (%) (Auto) 5.3 % Basophils (%) (Auto) 0.9 % Neutrophils # (Auto) 5.2 TH/MM3 Lymphocytes # (Auto) 1.4 TH/MM3 Monocytes # (Auto) 0.4 TH/MM3 Eosinophils # (Auto) 0.4 TH/MM3 Basophils # (Auto) 0.1 TH/MM3 CBC Comment DIFF FINAL Differential Comment Blood Urea Nitrogen 14 MG/DL Creatinine 0.77 MG/DL Random Glucose 111 MG/DL Total Protein 7.5 GM/DL Albumin 3.8 GM/DL Calcium Level 8.9 MG/DL Alkaline Phosphatase 58 U/L Aspartate Amino Transf (AST/SGOT) 20 U/L Alanine Aminotransferase (ALT/SGPT) 25 U/L Total Bilirubin 0.7 MG/DL Sodium Level 140 MEQ/L Potassium Level 4.1 MEQ/L Chloride Level 110 MEQ/L Carbon Dioxide Level 23.5 MEQ/L Anion Gap 7 MEQ/L Estimat Glomerular Filtration Rate 89 ML/MIN Lipase 86 U/L MDM Medical Decision Making Medical Screen Exam Complete: Yes Emergency Medical Condition: Yes Medical Record Reviewed: Yes Interpretation(s) Laboratory Tests Test 11/04/17 10:15 11/04/17 10:30 Urine Occult Blood LARGE (NEG) Urine RBC 15-19 /hpf (0-3) Eosinophils (%) (Auto) 5.3 % (0.0-4.0) Random Glucose 111 MG/DL (74-106) Chloride Level 110 MEQ/L (98-107) Differential Diagnosis Gastroenteritis versus gastritis versus renal colic Narrative Course Abdomen is fairly benign. Lab work was fairly unremarkable but she did have blood in her urine. CAT scan was ordered for further evaluation. It did not show any signs of significant hydronephrosis or signs of renal colic. At this point, CAT scan was also fairly unremarkable for any signs of acute processes. Patient had been given IV fluids, Zofran in the ER, and on reevaluation at 12: 30 PM, she feels improved although is still nauseous. She has not had any further vomiting episodes in the ER. My plan would be to release her with symptomatic relief for nausea and vomiting and follow-up to primary care doctor. Return for worsening in symptoms as needed. The plan has been discussed with her and she states understanding. Diagnosis Primary Impression: Nausea and vomiting Med/Other Pt SpecificInfo: Prescription(s) given Scripts Ondansetron Odt (Zofran Odt) 4 Mg Tab 4 MG SL Q6HR Y for Nausea/Vomiting, #7 TAB 0 Refills Prov: Alma Andres MD 11/04/17 Dicyclomine (Bentyl) 10 Mg Cap 10 MG PO TID Y for Bowel Management, #15 CAP 0 Refills Prov: Alma Andres MD 11/04/17 Disposition: 01 DISCHARGE HOME Condition: Stable Alma Andres MD November 04, 2017 11:52
--- NOTE | 2017-11-04 12:28 | RADRPT ---
EXAM DATE/TIME: 11/04/2017 12:06 [place] COMPARISON: CT ABDOMEN & PELVIS W/O CONTRAST, February 03, 2017, 14:00. INDICATIONS : Right flank pain. ORAL CONTRAST: No oral contrast ingested. RADIATION DOSE: 15.54 CTDIvol (mGy) MEDICAL HISTORY : Renal calculi. SURGICAL HISTORY : Appendectomy. Cholecystectomy. section.IUD. ENCOUNTER: Initial ACUITY: 3 days PAIN SCALE: 8/10 LOCATION: Right abdomen TECHNIQUE: Volumetric scanning of the abdomen and pelvis was performed. Using automated exposure control and ad justment of the mA and/or kV according to patient size, radiation dose was kept as low as reasonably achievable to obtain optimal diagnostic quality images. DICOM format image data is available electro nically for review and comparison. FINDINGS: LOWER LUNGS: The visualized lower lungs are clear. LIVER: Homogeneous density without lesion. There is no dilation of the biliary tree. No gallbladder, surgi nereyda removed.. SPLEEN: Normal size without lesion. PANCREAS: Within normal limits. KIDNEYS: Normal in size and shape. There is no mass, stone, or hydronephrosis. The ureters are nondilated. ADRENAL GLANDS: Within normal limits. VASCULAR: There is no aortic aneurysm. BOWEL/MESENTERY: The stomach, small bowel, and colon demonstrate no acute abnormality. There is no free intraperitone al air or fluid. The appendix is unremarkable. No inflammatory changes. ABDOMINAL WALL: Within normal limits. RETROPERITONEUM: There is no lymphadenopathy. BLADDER: No wall thickening or mass. No evidence of bladder stones. There are some calcified phleboliths the p cassandra bilaterally. REPRODUCTIVE: IUD in uterus. No significant changes. INGUINAL: There is no lymphadenopathy or hernia. MUSCULOSKELETAL: Within normal limits for patient age. No significant change compared to the prior examination. CONCLUSION: 1. No evidence of calcified renal stones or hydronephrosis. 2. IUD in the uterus. 3. No new or significant changes compared to the prior study. Wilder Dasilva MD on November 04, 2017 at 12:23 Board Certified Radiologist. This report was verified electronically.
[2017-11-04] MEDS ORDERED: DICY10 PO (12:35)
[2017-11-04] MEDS ORDERED: ZOFR4TAB3 SL (12:35)
[2017-11-04 12:47] VITALS: BP 105/52
== END 2017-11-04 13:16 | disposition home or self-care (01) ==
LOC: PHED 10:10
DX: R11.2 Nausea with vomiting, unspecified (principal); R10.33 Periumbilical pain; F41.9 Anxiety disorder, unspecified; Z87.442 Personal history of urinary calculi; Z88.5 Allergy status to narcotic agent
CPT/HCPCS: 74176; 80053; 81001; 83690; 84703; 85025; 96361; 96374; 99284; J2405; J7030